=== PATIENT | female | born 1990 | race African-American/Black ===

== ENCOUNTER 2021-09-08 10:58 | Emergency (ER) | payer OTHER ==
[~2021-09-08] VITALS: Ht 167.6 cm; Wt 77.1 kg
[2021-09-08 11:04] VITALS: BP 153/84
--- NOTE | 2021-09-08 11:10 | NUR ---
md otto in triage room for assessment
--- NOTE | 2021-09-08 11:12 | NUR ---
PT AMBULATED TO BED 06.
--- NOTE | 2021-09-08 11:14 | NUR ---
PATIENT AMBULATED TO RESTROOM W/ STEADY GAIT TO PROVIDE URINE SAMPLE.
[2021-09-08] MEDS ORDERED: ACET-10509 PO (11:38)
--- NOTE | 2021-09-08 11:38 | NUR ---
31/F BIB SELF. PATIENT PRESENTS TO ED WITH C/O ABDOMINAL PAIN DUE TO UMBILICAL HERNIA X3 DAYS. PATIENT REPORTS UMBILICAL HERNIA APPEARED X3 YEARS AGO BUT HAS EXPERIENCED "FLARE UPS" WITH WORSENING PAIN SINCE THIS MORNING. +N/V/DIARRHEA; -SOB, CP, DYSURIA, HEMATURIA. PATIENT DENIES PAIN IN ED UPON ASSESSMENT, STATES PAIN WAS 10/10 AND SHARP THIS MORNING. PMH: HTN (8 YRS AGO DURING ) MEDS: DENIES ALLERGIES: PENICILLIN
--- NOTE | 2021-09-08 11:41 | NUR ---
31/F BIB SELF WITH C/O ABDOMINAL PAIN DUE TO HERNIA. 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 PATIENT STATES THIS MORNING WHEN PICKING HER DAUGHTER UP SHE EXPERIENCED A SHARP PAIN THAT LASTED 45 MINUTES. STATING SHE HAS BEEN UNABLE TO REDUCE HERNIA, REPORTS 6/10 SHARP PAIN PRIOR TO ARRIVAL, STATES PAIN HAS SINCE RESOLVED. DENIES N/V/D, FEVERS, CHILLS, COUGH.
[2021-09-08 11:51] VITALS: BP 153/84
--- NOTE | 2021-09-08 11:51 | NUR ---
Patient discharged with v/s stable. Written and verbal after care instructions ABOUT HERNIA given and explained. Patient alert, oriented and verbalized understanding of instructions. Ambulatory with steady gait. All questions addressed prior to discharge. ID band removed. Patient advised to follow up with PMD. Rx of ACETAMINOPHEN given.
--- NOTE | 2021-09-08 11:52 | NUR ---
The patient's care was reviewed and supervised by Monica Spann RN.
== END 2021-09-08 11:51 | disposition home or self-care (01) ==
LOC: MED 10:58
DX: K42.9 Umbilical hernia without obstruction or gangrene (principal); Z88.0 Allergy status to penicillin
CPT/HCPCS: 81002; 81025; 99282